=== PATIENT | female | born 1990 | race Caucasian/White ===

== ENCOUNTER 2016-04-27 10:40 | Emergency (ER) | payer BC ==
[2016-04-27 11:04] VITALS: BP 109/67
--- NOTE | 2016-04-27 11:25 | UC ---
Throat Pain/Nasal Luis HPI - HPI Summary HPI Summary: NASAL CONGESTION, PND , SINUS PRESSURE X 2 DAYS NO FEVER, NO CHILLS, NO COUGH - History of Current Complaint Chief Complaint: UCGeneralIllness Stated Complaint: SINUS COMPLAINT Time Seen by Provider: 04/27/16 11:17 Hx Obtained From: Patient Hx Last Menstrual Period: 04/06/16 Onset/Duration: Gradual Onset, Lasting Days - 2, Still Present Severity: Moderate Associated Signs & Symptoms: Positive: Sinus Discomfort, Nasal Discharge. Negative: Fever, Rash - Allergies/Home Medications Allergies/Adverse Reactions: Allergies Allergy/AdvReac Type Severity Reaction Status Date / Time No Known Allergies Allergy Verified 04/27/16 11:03 Home Medications: Home Medications Ibuprofen [Advil] 200 mg PO Q6HR PRN 04/27/16 [History Confirmed 04/27/16] PMH/Surg Hx/FS Hx/Imm Hx - Surgical History Surgical History: None - Social History Alcohol Use: Occasionally Substance Use Type: None Smoking Status (MU): Never Smoked Tobacco Review of Systems Constitutional: Negative Skin: Negative ENT: Nasal Discharge Cardiovascular: Negative Gastrointestinal: Negative Genitourinary: Negative All Other Systems Reviewed And Are Negative: Yes Physical Exam Triage Information Reviewed: Yes Appearance: Well-Appearing, No Pain Distress, Well-Nourished Vital Signs: Initial Vital Signs Temp 98.4 F 04/27/16 10:59 Pulse 88 04/27/16 10:59 Resp 16 04/27/16 10:59 BP 109/67 04/27/16 10:59 Pulse Ox 100 04/27/16 10:59 Vital Signs Reviewed: Yes Eye Exam: Normal Eyes: Positive: Conjunctiva Clear ENT: Positive: Normal ENT inspection, Hearing grossly normal, Pharynx normal, Nasal congestion, Nasal drainage. Negative: Pharyngeal erythema Neck: Positive: Enlarged Nodes @ Respiratory Exam: Normal Respiratory: Positive: Chest non-tender, Lungs clear, Normal breath sounds Cardiovascular: Positive: RRR, No Murmur, Pulses Normal Skin Exam: Normal Throat Pain/Nasal Course/Dx - Differential Dx/Diagnosis Provider Diagnoses: URI Discharge - Discharge Plan Condition: Stable Disposition: HOME Patient Education Materials: Upper Respiratory Infection (ED) Referrals: Non Staff,Doctor [Primary Care Provider] - 7 Days Additional Instructions: NO SINUS INFECTION AT THIS TIME NO NEED FOR ABX INCREASE FLUID, TYLENOL NEEDED FOR PAIN TRY OTC FLONASE DAILY FOLLOW UP NEEDED
== END 2016-04-27 11:26 | disposition home or self-care (01) ==
LOC: UCCORT 10:40
DX: J06.9 Acute upper respiratory infection, unspecified (principal)
CPT/HCPCS: 99201; G0463